=== PATIENT | female | born 1995 | race Caucasian/White ===

== ENCOUNTER 2025-01-31 04:12 | Emergency (ER) | payer SELFPAY ==
[2025-01-31 04:19] VITALS: BP 113/79; PULSE 89; RESP 17; TEMP 36.6; O2SAT 99; BMI 22.7
[2025-01-31 04:45] VITALS: BP 125/79; PULSE 82; O2SAT 100
--- NOTE | 2025-01-31 04:46 | XRR_ITS ---
PROCEDURE INFORMATION: Exam: XR Pelvis Exam date and time: 01/31/2025 4:51 AM Age: 29 years old Clinical indication: C/O bilateral hip pain. No injury. ; Additional info: R>l hip pain TECHNIQUE: Imaging protocol: Radiologic exam of the pelvis. Views: 1 or 2 view. COMPARISON: No relevant prior studies available. FINDINGS: Bones/joints: Unremarkable. No acute fracture. Soft tissues: Unremarkable. XR/XR pelvis 1-2V* [id number] IMPRESSION: No acute findings.
--- NOTE | 2025-01-31 04:48 | ED_ITS ---
HPI - General Adult General: Chief complaint: General Medical Stated complaint: HIP PAIN Time Seen by Provider: 01/31/25 04:37 History of Present Illness: Patient is a 29-year-old female presenting with right hip pain. She reports experiencing pain in her right hip. The pain has been present for approximately two weeks and is associated with prolonged walking, a couple of weeks. Patient denies any traumatic injury or falls. She notes that the pain worsens when she stands up after sitting or resting. She describes the pain as an achy muscle sensation. Related Data Previous Rx's ?Medication ?Instructions ?Recorded diclofenac sodium 50 mg 50 mg PO TID PRN pain #30 ta bs 01/31/25 tablet,delayed release Allergies Allergy/AdvReac Type Severity Reaction Status Date / Time No Known Allergies Allergy Verified 01/31/25 04:26 Physical Exam Const: COMMON NORMALS: no acute distress GENERAL APPEARANCE: cooperative; not ill appearing and not frail appearing HENMT: COMMON NORMALS: normocephalic, atraumatic and Normal external nose present HEAD & SCALP: normocephalic and atraumatic FACE & SINUS: normal facial exam and face symmetric NOSE: Normal external nose present Eye: COMMON NORMALS: Equal, round and reactive pupils present and EOMs intact bilaterally PUPIL: Yes Equal, round and reactive pupils present Neck/C-Spine: GENERAL: Yes trachea midline Chest: CHEST: Yes Symmetrical chest wall rise Resp: COMMON NORMALS: normal respiratory effort, No retractions, No use of accessory muscles and clear to auscultation bilaterally AUSCULTATION: clear to auscultation bilaterally Cardio: COMMON NORMALS: regular rate and regular rhythm RATE: regular rate RHYTHM: regular rhythm GI: COMMON NORMALS: Normal to inspection, nondistended, normoactive bowel sounds present Extremity: COMMON NORMALS: no pedal edema NARRATIVE EXTREMITY EXAM: Exam the right lower extremity reveals some tenderness to palpation over the anterior right hip. There is pain with logroll testing. There is some anterior pain with straight leg raise testing and Stinchfield testing. Range of motion is intact. Pulses and sensation are normal distally. Neuro: JOHNNY COMA SCALE: document GCS findings Johnny coma scale eye opening: Spontaneous Johnny coma scale verbal response: Orientated Carbon coma scale motor response: Obey commands Johnny coma scale total score: 15 SENSORY EXAM: Yes extremities (intact) Psych: COMMON NORMALS: speech normal SPEECH: Yes normal speech Skin: COMMON NORMALS: no rashes or lesions noted GENERAL SKIN EXAM: no rashes or lesions noted Course Vital Signs: Vital signs: Vital Signs Temperature 97.9 F 01/31/25 04:19 Pulse Rate 83 01/31/25 05:39 Respiratory Rate 16 01/31/25 05:46 Blood Pressure 116/76 01/31/25 05:39 Pulse Oximetry 100 01/31/25 05:46 Oxygen Delivery Me thod Room Air 01/31/25 04:45 MDM - General Adult Medical Decision Making 29-year-old female with a right greater than left hip pain. She has been walking quite a bit. X-rays reveal no fracture. No deformity. No significant degenerative change. She does have a significant amount of constipation. Her vitals are stable. Lab Data Radiology Impressions Pelvis X-Ray 01/31/25 04:46 IMPRESSION: No acute findings. All radiology interpretation(s) finalized by discharge Discharge Plan Discharge Patient Disposition: Home Clinical Impression: Acute pain of right hip Condition: Stable Prescriptions: New diclofenac sodium 50 mg tablet,delayed release (DR/EC) 50 mg PO TID PRN (Reason: pain) Qty: 30 0RF Discharge Orders: Discharge ED (Routine); Ordered 01/31/25 Ordered By: Danilo Villeda Patient Instructions: Hip Pain (ED), Opioid Safety, Pain Management, Patient Portal & Aaron Instructions Activity Restrictions/Additional Instructions: Return for fever, significant numbness or tingling, weakness, other concerning symptoms Print Language: [place] Islander Coding Level of Care Code ED Consultant Internship for Kisha Morton
[2025-01-31 05:39] VITALS: BP 116/76; PULSE 83; O2SAT 99
[2025-01-31 05:46] VITALS: RESP 16; O2SAT 100
[2025-01-31] MEDS: oxyCODONE-APAP 5-325 mg Tablet 2 TAB PO (05:46)
== END 2025-01-31 06:31 | disposition home or self-care (01) ==
PROVIDERS: Emergency Provider Emergency Medicine
DX: M25.551 Pain in right hip (principal)
CPT/HCPCS: 72170; 99283; J9999